=== PATIENT | male | born 1975 | race Caucasian/White ===

== ENCOUNTER 2016-12-25 19:49 | Emergency (ER) | payer MEDICAID, OTHER ==
[~2016-12-25] VITALS: Ht 188 cm; Wt 68.0 kg
[2016-12-25 19:51] VITALS: BP 135/84; PULSE 112; RESP 16; TEMP 98.5; O2SAT 100
--- NOTE | 2016-12-25 20:08 | PD ---
HPI Chief Complaint: Lump, Cyst, Hernia Time Seen by Provider: 20:04 Travel History International Travel<30 days: No Contact w/Intl Traveler<30days: No Traveled to known affect area: No History of Present Illness HPI Patient is a 41-year-old male presenting to the emergency department for evaluation of a lump to his lower sternum. He states it's been there for over a year, it's tender at times to the touch. He denies any chest pain, shortness of breath, fever, chills, abdominal pain. He denies any injury to his anterior chest wall. The pain is intermittent, a 3 out of 10. Patient is concerned because his brother was diagnosed with stage IV lung cancer. He is a current daily tobacco user. He denies any illicit drug use. He does have a history of atrial fibrillation with ablation in the past. [facility] Past Medical History Atrial Fibrillation: Yes Past Surgical History Cardiac Surgery: Yes (ablation) Social History Alcohol Use: Yes Tobacco Use: Yes Substance Use: No Allergies-Medications (Allergen,Severity, Reaction): Coded Allergies: No Known Allergies (Unverified , 12/25/16) Review of Systems Except as stated in HPI: all other systems reviewed are Neg HENT: No: Headaches Cardiovascular: No: Chest Pain or Discomfort Respiratory: No: Shortness of Breath Gastrointestinal: No: Nausea, Abdominal Pain Musculoskeletal: Positive: Arthralgias Skin: Positive Lumps Physical Exam Narrative GENERAL: Well-nourished, well-developed patient. SKIN: Focused skin assessment warm/dry. No rash or obvious lesions or lumps noted. No erythema, induration. HEAD: Normocephalic. EYES: No scleral icterus. No injection or drainage. NECK: Supple, trachea midline. No JVD or lymphadenopathy. CARDIOVASCULAR: Regular rate and rhythm without murmurs, gallops, or rubs. RESPIRATORY: Breath sounds equal bilaterally. No accessory muscle use. GASTROINTESTINAL: Abdomen soft, non-tender, nondistended. MUSCULOSKELETAL: No cyanosis, or edema. Pronounced xiphoid process. BACK: Nontender without obvious deformity. No CVA tenderness. Data Data Last Documented VS Vital Signs Date Time Temp Pulse Resp B/P Pulse Ox O2 Delivery O2 Flow Rate FiO2 12/25/16 20:38 87 16 120/82 100 Room Air 12/25/16 19:51 98.5 Orders Chest, Pa & Lat (12/25/16 ) MDM Medical Decision Making Medical Screen Exam Complete: Yes Emergency Medical Condition: Yes Interpretation(s) Vital Signs Date Time Temp Pulse Resp B/P Pulse Ox O2 Delivery O2 Flow Rate FiO2 12/25/16 19:51 98.5 112 16 135/84 100 Room Air Differential Diagnosis Normal anatomy versus fracture versus cyst versus other Narrative Course Patient is a 41-year-old male presenting with a sternal lump for the last year. Physical examination appears normal, patient is thin and his xiphoid process appears pronounced. Chest x-ray ordered. Chest x-ray shows no acute disease. Patient is encouraged to establish care with a primary doctor or [facility]-up with [facility]. He is encouraged to attempt to quit smoking. He is encouraged to return to emergency department for any new or worsening symptoms. Patient verbalized understanding of instructions. Patient is stable for discharge. Diagnosis Primary Impression: Sternum pain Referrals: [facility] Primary Care Physician Patient Instructions: Costochondritis (ED), General Instructions Additional Instructions: Establish care with a primary doctor or at the [facility] Take medications as directed Return to emergency department for any new or worsening symptoms Med/Other Pt SpecificInfo: Prescription(s) given Scripts Ibuprofen 800 Mg Org241 Mg PO Q6HR PRN (PAIN) #40 TAB Ref 0 Prov:Carol Ann Uriarte 12/25/16 Disposition: 01 DISCHARGE HOME Condition: Stable Carol Ann Uriarte Dec 25, 2016 20:08
[2016-12-25 20:38] VITALS: BP 120/82; PULSE 87; RESP 16; O2SAT 100
--- NOTE | 2016-12-25 21:01 | RADRPT ---
EXAM DATE/TIME: 12/25/2016 20:13 [place] COMPARISON: No previous studies available for comparison. INDICATIONS : Lump on xiphoid process MEDICAL HISTORY : Diverticulitis. Atrial fibrillation SURGICAL HISTORY : Colon resection. ENCOUNTER: Initial ACUITY: 4 - 6 months PAIN SCORE: 5/10 LOCATION: Bilateral chest FINDINGS: PA and lateral views of the chest demonstrate the lungs to be symmetrically aerated without evidence of mass, infiltrate or effusion. Incidental note of azygous lobe. The cardiomediastinal contours ar e unremarkable. Osseous structures are intact. CONCLUSION: No acute cardiopulmonary disease. Juan Bradley MD on December 25, 2016 at 20:59 Board Certified Radiologist. This report was verified electronically.
[2016-12-25] MEDS ORDERED: IBUP800T23 PO (21:06)
== END 2016-12-25 21:33 | disposition home or self-care (01) ==
LOC: NEPK 19:49
DX: R07.2 Precordial pain (principal); I48.91 Unspecified atrial fibrillation; Z72.0 Tobacco use
CPT/HCPCS: 71020; 99283

== ENCOUNTER 2017-03-21 23:03 | Inpatient (IN) | payer OTHER ==
[~2017-03-21] VITALS: Ht 188 cm; Wt 69.4 kg
[~2017-03-21 23:03] MED LIST: IBUP800T23 PO
[2017-03-21 23:12] VITALS: BP 152/84; PULSE 87; RESP 18; TEMP 97.9; O2SAT 99
--- NOTE | 2017-03-22 00:05 | PD ---
HPI Chief Complaint: Psychiatric Symptoms Time Seen by Provider: 23:12 Travel History International Travel<30 days: No Contact w/Intl Traveler<30days: No Traveled to known affect area: No History of Present Illness HPI 41-year-old male presents to the emergency department under a Gould act for psychiatric evaluation. Patient states that he is going through separation, recently lost his brother, and [id number]. He is very depressed. He has not consumed alcohol in 5 years, but has over the last week. He was trying to "build up the current to blow his brains out." Patient does have a 9 mm handgun. Patient states that he does not want to go on anymore. Reports 2 remote previous suicide attempts, his first being at the age of 14. Does not take any medication. Denies illicit drug use. Has no other symptoms to report. PFSH Past Medical History Atrial Fibrillation: Yes Tetanus Vaccination: Unknown Past Surgical History Abdominal Surgery: Yes (colectomy ) Cardiac Surgery: Yes (ablation) Social History Alcohol Use: Yes (quit but did today) Tobacco Use: Yes (2 ppd) Substance Use: No Allergies-Medications (Allergen,Severity, Reaction): Coded Allergies: No Known Allergies (Unverified , 12/25/16) Reported Meds & Prescriptions Reported Meds & Active Scripts Active Ibuprofen 800 Mg Tab 800 Mg PO Q6HR PRN Review of Systems Except as stated in HPI: all other systems reviewed are Neg Physical Exam Narrative GENERAL: Thin male patient, in no acute distress. Left upper extremity tremor, patient attributes this to anxiety SKIN: Focused skin assessment warm/dry. HEAD: Atraumatic. Normocephalic. EYES: Pupils equal and round. No scleral icterus. No injection or drainage. ENT: No nasal bleeding or discharge. Mucous membranes pink and moist. NECK: Trachea midline. No JVD. CARDIOVASCULAR: Elevated rate and rhythm. No murmur appreciated. RESPIRATORY: No accessory muscle use. Clear to auscultation. Breath sounds equal bilaterally. GASTROINTESTINAL: Abdomen soft, non-tender, nondistended. Hepatic and splenic margins not palpable. MUSCULOSKELETAL: No obvious deformities. No clubbing. No cyanosis. No edema. NEUROLOGICAL: Awake and alert. No obvious cranial nerve deficits. Motor grossly within normal limits. Normal speech. Data Data Last Documented VS Vital Signs Date Time Temp Pulse Resp B/P (MAP) Pulse Ox O2 Delivery O2 Flow Rate FiO2 8/29/17 06:13 89 18 118/69 (85) 98 Room Air 03/22/17 00:10 97.9 Orders Orders Complete Blood Count With Diff (03/21/17 23:12) Basic Metabolic Panel (Bmp) (03/21/17 23:12) Psych Screen (03/21/17 23:12) Drug Screen, Random Urine (03/21/17 23:12) Alcohol (Ethanol) (03/21/17 23:12) Diet Regular Basic (03/22/17 Breakfast) Diet Regular Basic (03/22/17 Lunch) Labs Laboratory Tests Test 03/21/17 22:45 03/21/17 23:45 White Blood Count 8.4 TH/MM3 Red Blood Count 5.30 MIL/MM3 Hemoglobin 16.3 GM/DL Hematocrit 48.9 % Mean Corpuscular Volume 92.4 FL Mean Corpuscular Hemoglobin 30.7 PG Mean Corpuscular Hemoglobin Concent 33.3 % Red Cell Distribution Width 14.7 % Platelet Count 271 TH/MM3 Mean Platelet Volume 7.7 FL Neutrophils (%) (Auto) 66.2 % Lymphocytes (%) (Auto) 26.4 % Monocytes (%) (Auto) 5.0 % Eosinophils (%) (Auto) 1.7 % Basophils (%) (Auto) 0.7 % Neutrophils # (Auto) 5.6 TH/MM3 Lymphocytes # (Auto) 2.2 TH/MM3 Monocytes # (Auto) 0.4 TH/MM3 Eosinophils # (Auto) 0.1 TH/MM3 Basophils # (Auto) 0.1 TH/MM3 CBC Comment DIFF FINAL Differential Comment Blood Urea Nitrogen 8 MG/DL Creatinine 0.93 MG/DL Random Glucose 87 MG/DL Calcium Level 8.8 MG/DL Sodium Level 141 MEQ/L Potassium Level 3.7 MEQ/L Chloride Level 101 MEQ/L Carbon Dioxide Level 28.3 MEQ/L Anion Gap 12 MEQ/L Estimat Glomerular Filtration Rate 89 ML/MIN Ethyl Alcohol Level 219 MG/DL Urine Opiates Screen NEG Urine Barbiturates Screen NEG Urine Amphetamines Screen NEG Urine Benzodiazepines Screen NEG Urine Cocaine Screen NEG Urine Cannabinoids Screen NEG MDM Medical Decision Making Medical Screen Exam Complete: Yes Emergency Medical Condition: Yes Medical Record Reviewed: Yes Differential Diagnosis Disorder versus personality disorder versus adjustment reaction disorder Narrative Course 41 year old male presents to the ED for evaluation under Gould act. Patient does report suicidal ideation with plan to shoot himself with a gun that he does own. He appears slightly anxious. He does have a left upper extremity tremor. Lab work is without acute concern. EtOH is 219. Patient is medically cleared to undergo psychiatric screening for further evaluation and disposition. Mental health screening discussed with the patient. Psychiatric screen ordered. Diagnosis Primary Impression: Adjustment reaction with anxiety and depression Additional Impression: Alcohol intoxication Qualified Codes: F10.929 - Alcohol use, unspecified with intoxication, unspecified Condition: Stable Mackenzie Campos Mar 22, 2017 00:05
[2017-03-22 00:10] VITALS: BP 138/90; PULSE 85; RESP 18; TEMP 97.9; O2SAT 98
[2017-03-22 00:22] LABS: AUTOMATED NEUTROPHIL # 5.6 TH/MM3 (1.8-7.7); BASOPHIL # 0.1 TH/MM3 (0-0.2); BASOPHIL % 0.7 % (0.0-2.0); EOSINOPHIL # 0.1 TH/MM3 (0-0.4); EOSINOPHIL % 1.7 % (0.0-4.0); HEMATOCRIT 48.9 % (39.0-51.0); HEMO FLAGS DIFF FINAL; LYMPH % 26.4 % (9.0-44.0); LYMPHOCYTE # 2.2 TH/MM3 (1.0-4.8); MEAN CELL VOLUME 92.4 FL (80.0-100.0); MEAN CORPUSCULAR HEMOGLOBIN 30.7 PG (27.0-34.0); MEAN CORPUSCULAR HGB CONC 33.3 % (32.0-36.0); NEUT % 66.2 % (16.0-70.0); PLATELET COUNT 271 TH/MM3 (150-450); RED CELL DISTRIBUTION WIDTH 14.7 % (11.6-17.2); WHITE BLOOD COUNT 8.4 TH/MM3 (4.0-11.0)
[2017-03-22 00:40] LABS: BICARBONATE 28.3 MEQ/L (21.0-32.0); POTASSIUM 3.7 MEQ/L (3.5-5.1)
[2017-03-22 02:13] VITALS: BP 100/56; PULSE 86; RESP 18; O2SAT 97
[2017-03-22 06:13] VITALS: BP 118/69; PULSE 89; RESP 18; O2SAT 98
[2017-03-22 18:20] VITALS: BP 129/76; PULSE 65; RESP 18; O2SAT 97
[2017-03-22] MEDS ORDERED: ALUMINUM/MAGNESIUM/SIMETH 30 ML CUP PO PRN (22:15)
[2017-03-22] MEDS ORDERED: BENZTROPINE MESYLATE 2 MG/2 ML VIAL IM PRN (22:15)
[2017-03-22] MEDS ORDERED: MAGNESIUM HYDROXIDE SUSP 30 ML CUP PO PRN (22:15)
[2017-03-22] MEDS ORDERED: LORazepam 2 MG/ML VIAL IV PUSH PRN ×4 (22:15)
[2017-03-22] MEDS ORDERED: LORazepam 2 MG TAB PO PRN (22:15)
[2017-03-22] MEDS ORDERED: BENZTROPINE MESYLATE 1 MG TAB PO PRN (22:15)
[2017-03-22] MEDS ORDERED: LORazepam 1 MG TAB PO PRN (22:15)
[2017-03-22] MEDS ORDERED: ACETAMINOPHEN 325 MG TAB PO PRN (22:15)
[2017-03-22] MEDS ORDERED: diphenhydrAMINE HCL 50 MG CAP PO PRN (22:15)
[2017-03-22] MEDS ORDERED: FLUMAZENIL 0.5 MG/5 ML VIAL IV PUSH PRN (22:15)
[2017-03-22 22:35] VITALS: BP 147/97; PULSE 74; RESP 18; TEMP 98.1; O2SAT 99
[2017-03-23 06:29] VITALS: BP 124/73; PULSE 65; RESP 16; TEMP 99; O2SAT 99
[2017-03-23] MEDS: REMOVE OLD PATCH T-DERMAL SCH (09:00)
[2017-03-23] MEDS: FOLIC ACID 1 MG TAB PO SCH (09:41)
[2017-03-23] MEDS: THIAMINE HCL 100 MG TAB PO SCH (09:41)
[2017-03-23] MEDS: NICOTINE 21 MG/24 HR PATCH T-DERMAL SCH (09:42)
[2017-03-23 10:15] LABS: HDL CHOLESTEROL 66.7 MG/DL (40.0-60.0); LDL CHOLESTEROL 89 MG/DL (0-99)
[2017-03-23 11:03] LABS: HEMOGLOBIN A1a 1.2 %; HEMOGLOBIN A1b 1.7 %; HEMOGLOBIN Ao 85.7 %; HEMOGLOBIN LA1C 2.1 %; HEMOGLOBIN P3 3.5 %
[2017-03-23] MEDS: VENLAFAXINE HCL XR 37.5 MG CAP PO SCH (14:13)
--- NOTE | 2017-03-23 17:27 | HHI.HP ---
Provisional Diagnosis Admission Date Mar 22, 2017 at 22:04 [place] I. Major depressive disorder, single episode, severe without psychotic features [place] II. deferred [place] III. Diverticulitis with s/p bowel/colon resection [place] IV. Limited social support, homeless, recent family loss, [place] V. 35 Certification of Person's Competence To Provide Express and Informed Consent I have personally examined En Henry , a person being served at [facility] on, Mar 23, 2017 17:26. Express and informed consent means consent voluntarily given in writing, by a competent person, after sufficient explanation and disclosure of the subject matter involved to enable the person to make a knowing and willful decision without any element of force, fraud, deceit, duress, or other form of constraint or coercion. This person is 18 years of age or older, is not now known to be incompetent to consent to treatment with a guardian advocate, and does not have a health care surrogate or proxy currently making medical treatment decisions. I have found this person to be one of the following: [x] Competent to provide express and informed consent, as defined above, for voluntary admission to this facility and is competent to provide express and informed consent for treatment. He/she has the consistent capacity to make well reasoned, willful, and knowing decisions concerning his or her medical or mental health treatment. The person fully and consistently understands the purpose of the admission for examination/placement and is fully capable of personally exercising all rights assured under [place] Incompetent to provide express and informed consent to voluntary admission, and this is incompetent to provide express and informed consent to treatment. The person must be transferred to involuntary status and a petition for a guardian advocate filed with the Circuit Court. [] Refusing to provide express and informed consent to voluntary admission but is competent to provide express and informed consent for treatment. The person must be discharged or transferred to involuntary status. Form shall be completed within 24 hours of a person's arrival at the receiving facility and filed in the clinical record of each person: 1. Admitted on a voluntary basis 2. Permitted to provide express and informed consent to his/her own treatment 3. Allowed to transfer from involuntary to voluntary status 4. Prior to permitting a person to consent to his or her own treatment after having been previously found incompetent to consent to treatment. History of Present Illness Capacity: Has Capacity HPI Patient is a 41 y/o man, with no prior psychiatric history, one remote suicide attempts via overdose (9 years ago), recent history of alcohol use for the past 4 weeks, who was brought under Gould Act for psychiatric evaluation with concern for suicide. As per ED visit note, patient currently , his boss and brother recently along with his [id number], has had alcohol use for the past week, with reported "trying to build up the courage to blow his brains out ", not wanting to go on, feeling depressed and two reported previous suicide attempts in the context of alcohol intoxication with BAL of 219. Patient was transferred to the inpatient psychiatry unit for further evaluation and management. Patient found lying on hospital bed, calm and cooperative with interview, poor eye contact. Patient states that his called the white washer department because "she thought I was getting drunk to pull the trigger". He states that he is boss and brother recently . He states that his current stressors include his relationship discord with his , recent loss in income after moving to [place] and taking on a lower paying job, feeling very depressed, being homeless for the past four weeks, resumption of daily alcohol use and thoughts of not wanting to be alive but denies actively wanting to end his life at this time. He states that he has kulwinder having decreased sleep , appetite, concentration, energy, feels helpless, denies feeling hopeless and having increased thoughts of not wanting to be alive for the past few weeks. Currently he reports feeling "alright", continues to have thoughts of not wanting to be alive, denies HI, AVH or delusions. Past psychiatric history: denies previous psychiatric diagnosis, denies past psychiatric admissions, reports one prior suicide attempt 9 years ago via overdose, denies any previous history of self injurious behavior. Family psychiatric history: denies Substance use history: Tobacco (+),alcohol use for the past couple of weeks, last drink was prior to admission (5 beers), reports having quit for 5 years prior recent use, denies of any drug use Past medical history: Hx of diverticulitis s/p bowel/colon resection Allergies: NKDA Social history: , recently moved with and three children to [place] in July but has been homeless for the past 4 weeks but has been staying with friends and family intermittently. Review of Systems Except as stated in HPI: all other systems reviewed are Neg Past Psych History Psychological trauma history denies history of abuse Violence risk - others (6 mos) low Violence risk - self (6 mos) high Substance Abuse History Drugs/Alcohol past 12 months Tobacco (+),alcohol use for the past couple of weeks, last drink was prior to admission (5 beers), reports having quit for 5 years prior recent use, denies of any drug use Past Family Social History Coded Allergies: No Known Allergies (Unverified , 12/25/16) Discontinued Scripts Ibuprofen (Ibuprofen) 800 Mg Tab, 800 MG PO Q6HR Y for PAIN, #40 TAB 0 Refills Prov:Carol Ann Uriarte 12/25/16 Current Medications Medications (Trade) Dose Ordered Sig/Kareme Route Start Time Stop Time Status Last Admin (Benadryl) 50 mg HS PRN PO 03/22/17 22:15 (Tylenol) 650 mg Q4H PRN PO 03/22/17 22:15 (Milk Of Magnesia Liq) 30 ml DAILY PRN PO 03/22/17 22:15 (Mag-Al Plus Susp Liq) 30 ml Q6H PRN PO 03/22/17 22:15 (Habitrol 21 Mg Patch.24 Hr) 1 patch DAILY T-DERMAL 03/23/17 09:00 03/23/17 09:42 (Atarax) 50 mg Q6H PRN PO 03/22/17 22:15 (Cogentin) 1 mg Q12H PRN PO 03/22/17 22:15 (Cogentin Inj) 1 mg Q12H PRN IM 03/22/17 22:15 (Romazicon Inj) 0.2 mg Q1M PRN IV PUSH 03/22/17 22:15 (Ativan) 1 mg Q4H PRN PO 03/22/17 22:15 (Ativan Inj) 1 mg Q4H PRN IV PUSH 03/22/17 22:15 (Ativan) 2 mg Q2H PRN PO 03/22/17 22:15 (Ativan Inj) 2 mg Q2H PRN IV PUSH 03/22/17 22:15 (Ativan Inj) 2 mg Q1H PRN IV PUSH 03/22/17 22:15 (Ativan Inj) 2 mg Q15M PRN IV PUSH 03/22/17 22:15 Miscellaneous Information 1 DAILY T-DERMAL 03/23/17 09:00 (Vitamin B1) 100 mg DAILY PO 03/23/17 09:00 03/23/17 09:41 (Folate) 1 mg DAILY PO 03/23/17 09:00 03/23/17 09:41 (Effexor Xr) 37.5 mg DAILY PO 03/23/17 13:00 03/23/17 14:13 Family History denies Social History , recently moved with and three children to [place] in July but has been homeless for the past 4 weeks but has been staying with friends and family intermittently. Patient's Strengths (min. 2) verbal and communicative Physical Exam Upon examination, patient not in acute distress, no gross motor abnormalities, no tremor, signs of EPS or pschomotor agitation or retardation Vital Signs Vital Signs Date Time Temp Pulse Resp B/P (MAP) Pulse Ox O2 Delivery O2 Flow Rate FiO2 03/23/17 06:29 99.0 65 16 124/73 (90) 99 03/22/17 18:20 Room Air I/O 03/23/17 03/23/17 03/24/17 08:00 16:00 00:00 Intake Total 240 ml Balance 240 ml Lab Results Test 03/23/17 08:17 Hemoglobin A1c 5.2 % Triglycerides Level 111 MG/DL Cholesterol Level 178 MG/DL LDL Cholesterol 89 MG/DL HDL Cholesterol 66.7 MG/DL Cholesterol/HDL Ratio 2.66 RATIO Mental Status Examination Appearance Appears stated age, in hospital [facility], multiple tattoos, lying on hospital bed , calm and coopertive with interview, poor eye contact Speech: Unremarkable Orientation: x3 Memory: Unremarkable Thought Process: Linear Thought Content: Unremarkable Language fluent and spontaneous Fund of Knowledge average Hallucination Type: None Attention and Concentration: Easily Distracted Suicidal Ideation: Yes Previous Suicide Attempts: Yes Homicidal Ideation: No Previous Homicide Attempts: No Insight: Poor Judgment: Poor Affect: Sad Mood: Sad Motor Activity: Normal gait Assessment & Plan Problem List: (1) MAJOR DEPRESSV DISORD, SINGLE EPSD, SEV W/O PSYCH FEATURES ICD Codes: F32.2 - MAJOR DEPRESSV DISORD, SINGLE EPSD, SEV W/O PSYCH FEATURES Status: Acute Assessment & Plan Estimated LOS: 5-7 days. Patient is a 41 y/o man with history of previous suicide attempt, no prior psychiatric diagnosis, hospitalization or previous mental health services who was transferred to the inpatient psychiatry unit after presented in ED under Gould act for concern for suicide. Patient currently endorsing significant depressive symptoms in the context of recent bereavement, decrease in social status (lower paying job), undergoing separation from , homelessness, recent alcohol use and access to firearm which patient currently under high risk of self harm and requires inpatient psychiatric stabilization. Patient agrees to sign voluntary for this admission. Start Venlafaxine 37.5mg PO daily with upward titration for depression, continue CIWA protocol, supportive psychotherapy provided, collateral pending. Discharge planning in progress. Marlo Bazzi MD Mar 23, 2017 17:27
[2017-03-23 18:22] VITALS: BP 139/89; PULSE 82; RESP 16; TEMP 97.9; O2SAT 99
[2017-03-24 05:35] VITALS: BP 118/78; PULSE 72; RESP 18; TEMP 98.2; O2SAT 97
[2017-03-24] MEDS: REMOVE OLD PATCH T-DERMAL SCH (09:00)
[2017-03-24] MEDS: NICOTINE 21 MG/24 HR PATCH T-DERMAL SCH (09:13)
[2017-03-24] MEDS: THIAMINE HCL 100 MG TAB PO SCH (09:13)
[2017-03-24] MEDS: VENLAFAXINE HCL XR 37.5 MG CAP PO SCH (09:14)
[2017-03-24] MEDS: FOLIC ACID 1 MG TAB PO SCH (09:14)
--- NOTE | 2017-03-24 16:06 | HHI.PYPN ---
Subjective Remarks Patient seen for follow up, chart reviewed. Patient found sitting in day room watching television was able to engage in interview today. Patient states he's been feeling "okay" and states he wants to focus on getting himself better although continues to worry about his psychosocial circumstances outside of the hospital. Patient reports that he continues to feel somewhat depressed and denies any suicidality at this time. Patient states that he spoke with his and sister yesterday which went well. She reports continued to have decreased appetite but is trying to improve his nutrition. Reports energy being okay, reports tolerating medications well with no adverse drug reactions. Patient reported some difficulty sleeping last evening. Review of Systems Except as stated in HPI: all other systems reviewed are Neg Objective Alert: Yes [place]: Person, Place, Date Mood: Calm Affect: Restricted Memory Intact: Comment (intact) Hallucinations: Other (denies) Delusions: No Delusion Type: Other (denies) Suicidal: Ideation (denies) Homicidal: Ideation (denies) Insight/Judgment Limited insight, fair impulse control and judgment Vitals/IOs Vital Signs Date Time Temp Pulse Resp B/P (MAP) Pulse Ox O2 Delivery O2 Flow Rate FiO2 03/24/17 05:35 98.2 72 18 118/78 (91) 97 03/22/17 18:20 Room Air Intake and Output 03/24/17 03/24/17 03/25/17 08:00 16:00 00:00 Intake Total 240 ml 240 ml Balance 240 ml 240 ml Assessment & Plan Problem List: (1) MAJOR DEPRESSV DISORD, SINGLE EPSD, SEV W/O PSYCH FEATURES ICD Codes: F32.2 - MAJOR DEPRESSV DISORD, SINGLE EPSD, SEV W/O PSYCH FEATURES Status: Acute Assessment & Plan Patient this time reports tolerating medications well other continues report feeling depressed but denies any suicidality. Patient continues to have decreased appetite and having difficulty sleeping. We'll start trazodone 50 mg by mouth at bedtime for insomnia. Continue to encourage patient to maintain personal hygiene and participate in groups and activities while on the unit. Continue current treatment discharge planning in progress Justification for Cont. Inpt. At risk for further decompensation if at lower level of care Marlo Bazzi MD Mar 24, 2017 16:06
[2017-03-24 18:16] VITALS: BP 123/82; PULSE 72; RESP 18; TEMP 97; O2SAT 97
[2017-03-24] MEDS: traZODone HCL 50 MG TAB PO SCH (20:30)
[2017-03-25 05:11] VITALS: BP 110/67; PULSE 61; RESP 16; TEMP 96.8; O2SAT 96
[2017-03-25] MEDS: REMOVE OLD PATCH T-DERMAL SCH (09:00)
[2017-03-25] MEDS: THIAMINE HCL 100 MG TAB PO SCH (09:07)
[2017-03-25] MEDS: FOLIC ACID 1 MG TAB PO SCH (09:07)
[2017-03-25] MEDS: VENLAFAXINE HCL XR 37.5 MG CAP PO SCH (09:07)
[2017-03-25] MEDS: NICOTINE 21 MG/24 HR PATCH T-DERMAL SCH (09:08)
--- NOTE | 2017-03-25 11:39 | HHI.PYPN ---
Subjective Remarks Patient seen for follow-up, chart reviewed. As discussed with nursing staff patient denies any suicidal ideations. Patient found sitting in day room was able to engage in interview today. Patient states that he has been feeling "alright" with noticeable improvement in appetite, slept slightly better last evening. Patient states that continues to feel somewhat depressed although is less than when he first came. He rates his depression to be about a 3 or 4 out of 10 compared to [place] 10 (10 being the worst). Patient denies any suicidal ideations since admission. Patient reports that during the day he does feel somewhat anxious which she believes may be contributing to his difficulty to initiate sleep at night. Patient reports attending groups and activities while on the unit. Review of Systems Except as stated in HPI: all other systems reviewed are Neg Objective Alert: Yes [place]: Person, Place, Date Mood: Calm Affect: Appropriate Memory Intact: Comment (intact) Hallucinations: Other (denies) Delusions: No Delusion Type: Other (denies) Suicidal: Ideation (denies) Homicidal: Ideation (denies) Insight/Judgment Fair insight, impulse control and judgment Vitals/IOs Vital Signs Date Time Temp Pulse Resp B/P (MAP) Pulse Ox O2 Delivery O2 Flow Rate FiO2 03/25/17 05:11 96.8 61 16 110/67 (81) 96 03/22/17 18:20 Room Air Assessment & Plan Problem List: (1) MAJOR DEPRESSV DISORD, SINGLE EPSD, SEV W/O PSYCH FEATURES ICD Codes: F32.2 - MAJOR DEPRESSV DISORD, SINGLE EPSD, SEV W/O PSYCH FEATURES Status: Acute Assessment & Plan Patient this time continues to feel depressed although noted to have some improved mood but continues to feel anxious; denies any suicidality. We'll increase Effexor to 75 mg by mouth daily. Continue to monitor medication response adverse drug reactions. Supportive psychotherapy provided. Discharge planning in progress Justification for Cont. Inpt. Patient at risk for further decompensation if at a lower level of care Marlo Bazzi MD Mar 25, 2017 11:39
[2017-03-25 18:13] VITALS: BP 111/73; PULSE 79; RESP 16; TEMP 97.9; O2SAT 99
[2017-03-25] MEDS: traZODone HCL 50 MG TAB PO SCH (21:32)
[2017-03-26 05:01] VITALS: BP 104/65; PULSE 74; RESP 16; TEMP 97.8; O2SAT 98
[2017-03-26] MEDS: REMOVE OLD PATCH T-DERMAL SCH (09:00)
[2017-03-26] MEDS: VENLAFAXINE HCL XR 37.5 MG CAP PO SCH (09:30)
[2017-03-26] MEDS: FOLIC ACID 1 MG TAB PO SCH (09:30)
[2017-03-26] MEDS: THIAMINE HCL 100 MG TAB PO SCH (09:31)
[2017-03-26] MEDS: NICOTINE 21 MG/24 HR PATCH T-DERMAL SCH (09:34)
[2017-03-26] MEDS: hydrOXYzine HCL 50 MG TAB PO PRN ×2 (10:32→18:09)
--- NOTE | 2017-03-26 15:28 | HHI.PYPN ---
Subjective Remarks Patient was seen and case discussed with nursing. Patient is pleasant and cooperative with exam. Says he only drinks 5 beers before admission and does not regularly drink. Mood is improving. Describes his depression today is a 3 out of 10. Eating and sleeping well. He does describe her recent weight loss due to: Surgery secondary to diverticulitis. Patient denies suicidal or homicidal ideation intent or plan. Compliant with medications and tolerating them well Objective Alert: Yes [place]: Person, Place, Date Mood: Depressed Affect: Restricted Memory Intact: Comment (intact) Hallucinations: Other (denies) Delusions: No Delusion Type: Other (denies) Suicidal: Ideation (denies) Homicidal: Ideation (denies) Insight/Judgment Fair Vitals/IOs Vital Signs Date Time Temp Pulse Resp B/P (MAP) Pulse Ox O2 Delivery O2 Flow Rate FiO2 03/26/17 05:01 97.8 74 16 104/65 (78) 98 03/22/17 18:20 Room Air Assessment & Plan Problem List: (1) MAJOR DEPRESSV DISORD, SINGLE EPSD, SEV W/O PSYCH FEATURES ICD Codes: F32.2 - MAJOR DEPRESSV DISORD, SINGLE EPSD, SEV W/O PSYCH FEATURES Status: Acute Assessment & Plan Continue current treatment plan Justification for Cont. Inpt. Patient will decompensate in a less restrictive setting Owen Mcgill DO Mar 26, 2017 15:28
[2017-03-26 20:14] VITALS: BP 112/70; PULSE 70; TEMP 97.6; O2SAT 99
[2017-03-26] MEDS: traZODone HCL 50 MG TAB PO SCH (20:48)
[2017-03-27 05:17] VITALS: BP 118/76; PULSE 64; RESP 16; TEMP 98.7; O2SAT 97
[2017-03-27] MEDS: REMOVE OLD PATCH T-DERMAL SCH (09:00)
[2017-03-27] MEDS: VENLAFAXINE HCL XR 37.5 MG CAP PO SCH (10:13)
[2017-03-27] MEDS: THIAMINE HCL 100 MG TAB PO SCH (10:13)
[2017-03-27] MEDS: FOLIC ACID 1 MG TAB PO SCH (10:13)
[2017-03-27] MEDS: NICOTINE 21 MG/24 HR PATCH T-DERMAL SCH (10:14)
[2017-03-27] MEDS: hydrOXYzine HCL 50 MG TAB PO PRN ×2 (10:40→17:42)
--- NOTE | 2017-03-27 12:40 | HHI.PYPN ---
Subjective Remarks Patient was seen and case discussed with nursing. Patient has been social in his room. Eating and sleeping well. Discusses his goals of moving back to [place] with his kids. Says his mood is improving and is now at 3 out of 10 where yesterday was a 3/4 out of 10. Affect remains blunted. This tolerating his medications well. Denies ruminating about suicide Objective Alert: Yes [place]: Person, Place, Date Mood: Depressed Affect: Restricted Memory Intact: Comment (intact) Hallucinations: Other (denies) Delusions: No Delusion Type: Other (denies) Suicidal: Ideation (denies) Homicidal: Ideation (denies) Insight/Judgment Improving Vitals/IOs Vital Signs Date Time Temp Pulse Resp B/P (MAP) Pulse Ox O2 Delivery O2 Flow Rate FiO2 03/27/17 05:17 98.7 64 16 118/76 (90) 97 Assessment & Plan Problem List: (1) MAJOR DEPRESSV DISORD, SINGLE EPSD, SEV W/O PSYCH FEATURES ICD Codes: F32.2 - MAJOR DEPRESSV DISORD, SINGLE EPSD, SEV W/O PSYCH FEATURES Status: Acute Assessment & Plan Continue current treatment plan Justification for Cont. Inpt. Patient would decompensate in a less restrictive setting Owen Mcgill DO Mar 27, 2017 12:40
[2017-03-27] MEDS: traZODone HCL 50 MG TAB PO SCH (21:09)
[2017-03-28 05:17] VITALS: BP 124/74; PULSE 60; RESP 16; TEMP 99.2; O2SAT 99
[2017-03-28] MEDS: NICOTINE 21 MG/24 HR PATCH T-DERMAL SCH (08:43)
[2017-03-28] MEDS: THIAMINE HCL 100 MG TAB PO SCH (08:43)
[2017-03-28] MEDS: REMOVE OLD PATCH T-DERMAL SCH (08:43)
[2017-03-28] MEDS: FOLIC ACID 1 MG TAB PO SCH (08:43)
[2017-03-28] MEDS: VENLAFAXINE HCL XR 37.5 MG CAP PO SCH (08:43)
[2017-03-28] MEDS: hydrOXYzine HCL 50 MG TAB PO PRN (09:55)
[2017-03-28] MEDS ORDERED: hydrOXYzine HCL 25 MG TAB PO PRN (12:00)
--- NOTE | 2017-03-28 16:07 | HHI.PYPN ---
Subjective Remarks Patient seen for follow, chart review. Patient found sitting in day room watching television but was able to engage in interview today. Patient states that his weekend went "all right" and that it went "pretty fast". Patient reports considering his plans after he discharged from the hospital over the weekend. Patient states that his mood is "pretty good" denying any recurrence of suicidal ideations, feeling well on his current treatment regimen. Patient states that he'll be visited by his children's mother today and will look into the possibility of him being able to return back to the home to live with them upon discharge. Patient reports that he some usually feels anxious morning as he does not have much activity to participate in the early and states that he is usually productive at the start is a day. Patient reports to be better, improved appetite, improved energy and mood. Review of Systems Except as stated in HPI: all other systems reviewed are Neg Objective Alert: Yes [place]: Person, Place, Date Mood: Depressed (less so today) Affect: Restricted (less so today, more reactive) Memory Intact: Comment (intact) Hallucinations: Other (denies) Delusions: No Delusion Type: Other (denies) Suicidal: Ideation (denies) Homicidal: Ideation (denies) Insight/Judgment Fair insight, impulse control and judgment Vitals/IOs Vital Signs Date Time Temp Pulse Resp B/P (MAP) Pulse Ox O2 Delivery O2 Flow Rate FiO2 03/28/17 05:17 99.2 60 16 124/74 (91) 99 Assessment & Plan Problem List: (1) MAJOR DEPRESSV DISORD, SINGLE EPSD, SEV W/O PSYCH FEATURES ICD Codes: F32.2 - MAJOR DEPRESSV DISORD, SINGLE EPSD, SEV W/O PSYCH FEATURES Status: Acute Assessment & Plan The patient at this time noted to have improved mood, no longer having suicidal ideations. Patient reported some anxiety in the morning. We'll start hydroxy 25 mg by mouth a.m. for anxiety. Continue hydroxyzine 25 mg every 6 hours when necessary. Justification for Cont. Inpt. At risk for decompensation if it lower level of care Marlo Bazzi MD Mar 28, 2017 16:07
[2017-03-28 18:00] VITALS: BP 124/66; PULSE 73; RESP 16; TEMP 98.1
[2017-03-28] MEDS: traZODone HCL 50 MG TAB PO SCH (20:55)
[2017-03-29 06:12] VITALS: BP 113/75; PULSE 72; RESP 17; TEMP 97.7; O2SAT 97
[2017-03-29] MEDS: REMOVE OLD PATCH T-DERMAL SCH (09:00)
[2017-03-29] MEDS: hydrOXYzine HCL 25 MG TAB PO SCH (09:05)
[2017-03-29] MEDS: FOLIC ACID 1 MG TAB PO SCH (09:06)
[2017-03-29] MEDS: VENLAFAXINE HCL XR 37.5 MG CAP PO SCH (09:06)
[2017-03-29] MEDS: THIAMINE HCL 100 MG TAB PO SCH (09:06)
[2017-03-29] MEDS: NICOTINE 21 MG/24 HR PATCH T-DERMAL SCH (09:08)
--- NOTE | 2017-03-29 13:02 | HHI.PYPN ---
Subjective Remarks Patient seen for follow-up, chart reviewed. Patient found sitting in the area able to engage in interview today. Patient states that he is feeling "good" reports feeling less depressed but hopeful. Patient states that he spoke with his children's mother and is highly likely days able to stay with her post discharge. Patient states that his mood has improved greatly and looks forward to discharge returning back to his family. Patient states he plans on remaining sober from alcohol use and agrees to follow-up in the outpatient clinic for continuity of care. Review of Systems Except as stated in HPI: all other systems reviewed are Neg Objective Alert: Yes [place]: Person, Place, Date Mood: Depressed (less so today) Affect: Restricted (less so today, more reactive) Memory Intact: Comment (intact) Hallucinations: Other (denies) Delusions: No Delusion Type: Other (denies) Suicidal: Ideation (denies) Homicidal: Ideation (denies) Insight/Judgment Fair insight, impulse control and judgment Vitals/IOs Vital Signs Date Time Temp Pulse Resp B/P (MAP) Pulse Ox O2 Delivery O2 Flow Rate FiO2 03/29/17 06:12 97.7 72 17 113/75 (88) 97 Intake and Output 03/29/17 03/29/17 03/30/17 08:00 16:00 00:00 Intake Total 240 ml Balance 240 ml Assessment & Plan Problem List: (1) MAJOR DEPRESSV DISORD, SINGLE EPSD, SEV W/O PSYCH FEATURES ICD Codes: F32.2 - MAJOR DEPRESSV DISORD, SINGLE EPSD, SEV W/O PSYCH FEATURES Status: Acute Assessment & Plan Patient responding well to treatment, improved mood and no longer endorsing suicidal ideation. Patient likely for discharge tomorrow back to family. Continue current treatment. Discharge planning in progress. Justification for Cont. Inpt. At risk for decompensation if it lower level of care Marlo Bazzi MD Mar 29, 2017 13:02
[2017-03-29 18:30] VITALS: BP 150/81; PULSE 94; RESP 18; TEMP 98.1; O2SAT 98
[2017-03-29] MEDS: traZODone HCL 50 MG TAB PO SCH (21:42)
[2017-03-30 06:34] VITALS: BP 126/80; PULSE 79; RESP 18; TEMP 98.6; O2SAT 97
[2017-03-30] MEDS: VENLAFAXINE HCL XR 37.5 MG CAP PO SCH (08:09)
[2017-03-30] MEDS: NICOTINE 21 MG/24 HR PATCH T-DERMAL SCH (08:09)
[2017-03-30] MEDS: FOLIC ACID 1 MG TAB PO SCH (08:09)
[2017-03-30] MEDS: REMOVE OLD PATCH T-DERMAL SCH (08:10)
[2017-03-30] MEDS: hydrOXYzine HCL 25 MG TAB PO SCH (08:10)
[2017-03-30] MEDS: THIAMINE HCL 100 MG TAB PO SCH (08:10)
[2017-03-30] MEDS ORDERED: FOLI1TAB6 PO (10:59)
[2017-03-30] MEDS ORDERED: TRAZ50TA12 PO (10:59)
[2017-03-30] MEDS ORDERED: GNP100TA3 PO (10:59)
[2017-03-30] MEDS ORDERED: VENL75CA44 PO (10:59)
[2017-03-30] MEDS ORDERED: HYDR-3133 PO (10:59)
--- NOTE | 2017-03-30 14:13 | HHI.DS ---
Psychiatry Discharge Summary Inpatient Psychiatric care?: Yes Advance Directive: No Reason Not Provided: NONE Mental Health AdvanceDirective: No Health Care Proxy: No Admission Admission Date Mar 22, 2017 at 22:04 Admission Diagnosis: (1) MAJOR DEPRESSV DISORD, SINGLE EPSD, SEV W/O PSYCH FEATURES ICD Code: F32.2 - MAJOR DEPRESSV DISORD, SINGLE EPSD, SEV W/O PSYCH FEATURES Brief History Patient is a 41 y/o man, with no prior psychiatric history, one remote suicide attempts via overdose (9 years ago), recent history of alcohol use for the past 4 weeks, who was brought under [facility] for psychiatric evaluation with concern for suicide. As per ED visit note, patient currently , his boss and brother recently along with his [id number], has had alcohol use for the past week, with reported "trying to build up the courage to blow his brains out ", not wanting to go on, feeling depressed and two reported previous suicide attempts in the context of alcohol intoxication with BAL of 219. Patient was transferred to the inpatient psychiatry unit for further evaluation and management. Patient found lying on hospital bed, calm and cooperative with interview, poor eye contact. Patient states that his called the bench repair technician department because "she thought I was getting drunk to pull the trigger". He states that he is boss and brother recently . He states that his current stressors include his relationship discord with his , recent loss in income after moving to [place] and taking on a lower paying job, feeling very depressed, being homeless for the past four weeks, resumption of daily alcohol use and thoughts of not wanting to be alive but denies actively wanting to end his life at this time. He states that he has kulwinder having decreased sleep , appetite, concentration, energy, feels helpless, denies feeling hopeless and having increased thoughts of not wanting to be alive for the past few weeks. Currently he reports feeling "alright", continues to have thoughts of not wanting to be alive, denies HI, AVH or delusions. Past psychiatric history: denies previous psychiatric diagnosis, denies past psychiatric admissions, reports one prior suicide attempt 9 years ago via overdose, denies any previous history of self injurious behavior. Family psychiatric history: denies Substance use history: Tobacco (+),alcohol use for the past couple of weeks, last drink was prior to admission (5 beers), reports having quit for 5 years prior recent use, denies of any drug use Past medical history: Hx of diverticulitis s/p bowel/colon resection Allergies: NKDA Social history: , recently moved with and three children to [place] in July but has been homeless for the past 4 weeks but has been staying with friends and family intermittently. Tobacco Use In Past 30 Days: 5 or More Cigarettes/Day Alcohol Use: 2-4 Times Per Month Hospital Course Patient is a 41 y/o man, with no prior psychiatric history, one remote suicide attempts via overdose (9 years ago), recent history of alcohol use for the past 4 weeks, who was brought under [facility] for psychiatric evaluation with concern for suicide. Patient was started on venlafaxine 37.5mg PO daily, continued on CIWA protocol, and was started on trazodone 50mg at bedtime for insomnia. Patient had improvement of mood, venlafaxine was increased to 75mg PO daily with stabilization of mood. Patient upon discharge was future oriented, no longer endorsing suicidal ideation, was goal directed to continue current treatment regimen and adhere to outpatient follow up for continuity of care. Supportive psychotherapy provided. Patient advised to call 911 or return to the nearest emergency department in case of emergency. Patient agrees with plan. Results Blood Pressure 126 / 80 Vital Signs Date Time Temp Pulse Resp B/P (MAP) Pulse Ox O2 Delivery O2 Flow Rate FiO2 03/30/17 06:34 98.6 79 18 126/80 (95) 97 Laboratory Results Test 03/23/17 08:17 Cholesterol Level 178 MG/DL (120-200) HDL Cholesterol 66.7 MG/DL (40.0-60.0) Hemoglobin A1c 5.2 % (4.3-6.0) LDL Cholesterol 89 MG/DL (0-99) Triglycerides Level 111 MG/DL (42-150) Summary of Procedures None Pending results at discharge: No Medications # of Antipsychotic meds at D/C: 0 Approp Antipsych med options 1 - Minimum of three failed multiple trials of monotherapy. 2 - Documented plan to taper to monotherapy due to previous use of multiple meds OR cross-taper in progress at D/C. 3 - Documentation of augmentation of Clozapine. 4 - Justification other than those listed in allowable values 1-3, document here : Discharge Discharge Date: Mar 30, 2017 Discharge Diagnosis: (1) MAJOR DEPRESSV DISORD, SINGLE EPSD, SEV W/O PSYCH FEATURES Diagnosis: Principal ICD Code: F32.2 - MAJOR DEPRESSV DISORD, SINGLE EPSD, SEV W/O PSYCH FEATURES Status: Acute Mental Status Exam at Disch Appearance/Behavior: appears stated age, in casual clothing, noted to be calm and cooperative with interview, fair eye contact Speech: normal rate, tone and prosody Mood: "good" Affect: euthymic TP: linear, future oriented TC: denies SI, HI, AVH or delusions Insight/Impulse control/Judgment: Fair Alert and oriented x 3 Pt Condition on Discharge: Fair Discharge Disposition: Discharge Home Discharge Instructions Diet Instructions: As Tolerated, No Restrictions Activities you can perform: Regular-No Restrictions Scheduled Appointment: Royce Wolfe Appointment Date: Mar 31, 2017 Appointment Time: 730 Discharge Time > 30 minutes Discharge/Advance Care Plan Health Problems: (1) MAJOR DEPRESSV DISORD, SINGLE EPSD, SEV W/O PSYCH FEATURES Goals to promote your health * To prevent worsening of your condition and complications * To maintain your health at the optimal level Directions to meet your goals Take your medications as prescribed Follow your dietary instruction Follow activity as directed Keep your appointments as scheduled Take your immunizations and boosters as scheduled If your symptoms worsen call your PCP, if no PCP go to Urgent Care Center or Emergency Room For 24 questions related to your inpatient stay or results of tests pending at discharge, please contact Dr. Marlo Bazzi at Smoking is Dangerous to Your Health. Avoid second hand smoking Marlo Bazzi MD Mar 30, 2017 14:13
== END 2017-03-30 16:55 | disposition home or self-care (01) | DRG 885 ==
LOC: NEPJ 23:03 → NEDA 03-22 22:04 → H260 03-22 22:36
PROVIDERS: ADMIT Student in an Organized Health Care Education/Training Program; ATTEND Student in an Organized Health Care Education/Training Program
DX: F33.2 Major depressive disorder, recurrent severe without psychotic features (principal); F10.129 Alcohol abuse with intoxication, unspecified; Z59.0 Homelessness; Y90.7 Blood alcohol level of 200-239 mg/100 ml; F17.210 Nicotine dependence, cigarettes, uncomplicated
CPT/HCPCS: 80048; 80061; 80307; 83036; 85025; 99285